=== PATIENT | female | born 1980 | race Caucasian/White ===

== ENCOUNTER 2018-06-24 19:57 | Emergency (ER) | payer OTHER, SELFPAY ==
[2018-06-24 20:00] VITALS: BP 149/94; PULSE 91; RESP 18; TEMP 36.8; O2SAT 99; BMI 23.3
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
--- NOTE | 2018-06-24 21:55 | RAD_ITS ---
STUDY: X-RAY - LEFT RADIUS AND ULNA REASON FOR EXAM: Female, 37 years old. Injury. Mid arm pain. TECHNIQUE: 2 view(s) of the forearm. COMPARISON: None. FINDINGS: There is no demonstrated soft tissue swelling. Normal visualized radius. Normal visualized ulna. There is no acute fracture, dislocation or destructive osseous pathology. The wrist and elbow appear grossly unremarkable. RAD/Forearm 2 Views IMPRESSION: Normal x-ray examination of the radius and ulna. Electronically Signed: Kameron Martin DO at 22:13 EST Tel [phone], Service support ,
--- NOTE | 2018-06-24 22:51 | ED.DEP ---
ED Disposition - Plan for ED Patient: Disposition: Home or Assisted Living Chief Complaint: Head Injury Instructions: ED Concussion, ED Contusion Upper Ext Prescriptions: Meclizine HCl [Antivert] 25 mg PO TID PRN PRN #20 tab PRN Reason: vertigo or nausea Referrals: Sergio Subramanian III, MD [Primary Care Provider] - 3-5 Days if not improving [facility] [GROUP OF PHYSICIANS] - 1 Day Additional Instructions: If you have any worsening of your condition or any new concerning symptoms, please return immediately to the emergency department for another evaluation.
[2018-06-24] MEDS: Acetaminophen 500 MG Tablet 1000 MG PO (22:53)
[2018-06-24] MEDS: Meclizine HCl 25 MG Tablet PO (22:56)
[2018-06-24 23:03] VITALS: BP 142/89; PULSE 76; RESP 16; O2SAT 99
--- OUTSIDE RECORDS SUMMARY | 2018-08-10 22:43 | XMS RPT_ITS ---
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 Location: right lower cheek Character: Mostly pressure, some throbbing Radiation: Into the right upper teeth, sore right neck glands Aggravating: Chewing food, pressure leaning forward Relieving: Pressing on the cheek Pain relievers: Ibuprofen (800mg reduced pain this morning at 3AM), advil sinus was helping a few days ago for presumed sinus pain Associated: Hot flashes/cold chills, AM nasal discharge, tickle cough yesterday, environmental allergies. Pertinent negatives: Denies sore throat, Has 9 month old at home. Vasectomy for control. MEDICATIONS: No prescriptions on file. ALLERGIES: ALLERGIES Allergen Reactions - Sulfa (Sulfonamide * CHILDHOOD REACTION VITALS: BP 120/80 Pulse 94 Temp 36.6 ?C (97.9 ?F) (Left Tympanic) Resp 14 Wt 69.4 kg (153 lb) PHYSICAL EXAM: GEN: pleasant, more comfortable pressing on her right cheek (in line with the right cornea and nostrils) but otherwise no acute distress, alert HEENT: PERRL, EOMI, MMM. No obviously fractured teeth. The distal roots are exposed on the teeth and they are mobile with palpation but not tender. NECK: supple, tender right anterior chain, lymphadenopathy, no thyromegaly HEART: regular rate, regular rhythm, no murmurs LUNGS: clear to auscultation, no wheezes or crackles, no increased WOB ABD: soft, non-distended, no masses palpated, non-tender EXT: no clubbing, no cyanosis, no edema ASSESSMENT/PLAN: 1. Pain of cheek - ICD9: 784.0, ICD10: R51 Sinusitis vs dental abscess. Start - AMOXICILLIN 875 MG TABLET Follow up with dentist or PCP if not improving. Ibuprofen and acetaminophen for pain. Janna Mendez MD Referring Provider: SELF [200] Allergies As of Date: 12/10/2017 Noted Allergy Reaction SULFA (SULFONAMIDE ANTIBIOTICS) 05/27/2008 Comments: CHILDHOOD REACTION Date Reviewed: 12/10/2017 Reviewed by: Lilly Chavis Ma - Fully Assessed Reason for Visit: Dental Problem [31] Sinus Infection,frequent/recurring [1167] Cmt: possible Primary Visit Diagnosis:Pain of cheek [R51] Order(s):amoxicillin (AMOXIL) 875 mg tabletTake 1 tablet by mouth twice daily for 10 days.Disp: 14 tabletRfl: 0 Prescriptions as of 12/10/2017 Sig: AMOXICILLIN 875 MG TABLET Take 1 tablet by mouth twice * Problem List As Of Date 12/10/2017 Noted Resolved SUPERVIS OTHER NORMAL PREG [Z34.80] INVALID FOR* SUPRF HIGH RISK NEC [O09.899] INVALID FOR* Prescriptions ordered this encounter Disp Refills Start End AMOXICILLIN 875 MG TABLET 14 t* 0 12/10/2017 12/20/2017 Route: ORAL Sig: Take 1 tablet by mouth twice daily for 10 days. Medications Discontinued During This Encounter calcium carbonate(CORAL CALCIUM 185 * 0 06/10/2008 12/10/2017 Class: Med Update Route: ORAL Sig: use as directed Disc: Reason for discontinue is not on file. norgestimate-ethinyl estradiol(SPRIN* 21 14 01/26/2009 12/10/2017 Class: Print RX Route: ORAL Sig: Take one(1) tablet daily. Continuously Disc: Reason for discontinue is not on file. Letter Text [facility] [address], [place] [address] 12/10/2017 Christine Gregg CC# [id number] [address] [place] [id number] TO WHOM IT MAY CONCERN: This is to confirm that Christine Gregg had an appointment and was seen at the [facility] in the Department of Urgent Care by Janna Mendez MD on 12/10/2017 for illness. Sincerely , Janna Mendez MD Encounter Status:Closed by JANNA MENDEZ MD on 12/10/17 ALLERGIES ALLERGIES DATE TYPE / CODE NAME / CODE REACTION SEVERITY SOURCE 06/26/2018 Drug Sulfa Unknown Unknown [facility] Repository CT) [id number](RX NORM) 05/27/2008 Drug SULFA [facility] Class/096732 (SULFONAMIDE Main Mobile 003(SNOMED ANTIBIOTICS) Repository CT) ENCOUNTERS ENCOUNTERS ADMIT/DISCHARGE ACCOUNT ADMITTING ENCOUNTER LOCATION SOURCE NUMBER CLASS 07/27/2018/07/27/19 [id number] Ambulatory BMSBuilding:B [facility] 19 MS.NOW [facility] Repository 07/03/2018/07/03/20 [id number] Ambulatory BMSBuilding:B [place] 18 MS.NOW [facility] Repository 06/26/2018/06/26/20 [id number] Ambulatory BMSBuilding:B [place] 18 MS.NOW [facility] Repository 06/24/2018/06/24/20 [id number] [facility] Hospital ing:ED Repository 12/10/2017/12/12/[id number] Repository PAYERS PAYERS ENCOUNTER GUARANTOR PAYER SUBSCRIBER SOURCE 07/27/2018 CHRISTINE Pagan Primary CHRISTINE Pagan [facility] [address] Insurance:OB TUCKERDOB: [address] [id number] Hospital [address]Ilz: (330) ADMINPolicy Number: Repository 466 () [id number] Date: [place], [place] [address]GL: 07/27/2018 Secondary CHRISTINE C [facility] Insurance:MEDICAL TUCKERDOB: [facility] [id number] Hospital Number: Repository [id number] Date:[id number] [address]ZF: 07/27/2018 Tertiary NOT GIVENUNK [place] Insurance:SELF PAY [facility] Number: Effective Repository Date:2018-07-27 07/03/2018 CHRISTINE Pagan Primary CHRISTINE Pagan [facility] [address] Insurance:OB TUCKERDOB: [address] [id number] Hospital [address]Ysg: (330) ADMINPolicy Number: Repository [id number] () [id number] Date: [place], [place] [address]FN: 07/03/2018 Secondary CHRISTINE C [place] Insurance:MEDICAL TUCKERDOB: [facility] [id number] Hospital Number: Repository [id number] Date:[id number] [address]UY: 07/03/2018 Tertiary NOT GIVENUNK [place] Insurance:SELF PAY [facility] Number: Effective Repository Date:2018-07-03 06/26/2018 CHRISTINE C Primary CHRISTINE C [facility] [address] Insurance:OB [address]ERDOB: [address] MED[address] [id number] Hospital [address]Gkz: (330) ADMINPolicy Number: Repository [id number] () [id number] Date: [place] [address]HK: 06/26/2018 Secondary CHRISTINE C [place] Insurance:MEDICAL TUCKERDOB: [facility] [id number] Hospital Number: Repository [id number] Date:[id number] [address] [address]JK: 06/26/2018 Tertiary NOT GIVENUNK [place] Insurance:SELF PAY [facility] Number: Effective Repository Date:2018-06-26 06/24/2018 CHRISTINE C Primary CHRISTINE C Sharda [facility] BOX [facility] [address] [id number] Hospital [address]Ded: (330) ADMINPolicy Number: Repository [id number] () [id number] Date: [place], [place] [address]RH: 06/24/2018 Secondary CHRISTINE C [place] Insurance:MEDICAL TUCKERDOB: [facility] [id number] Hospital Number: Repository [id number] Date:[id number] [address] [address]ZK: 06/24/2018 Tertiary NOT GIVENUNK [place] Insurance:SELF PAY [facility] Number: Effective Repository Date:2018-06-24
== END 2018-06-24 23:05 | disposition home or self-care (01) ==
PROVIDERS: Emergency Provider Emergency Medicine; Family Provider Family Medicine; PCP Family Medicine
DX: S06.0X0A Concussion without loss of consciousness, initial encounter (principal); S50.12XA Contusion of left forearm, initial encounter; R40.2410 Glasgow coma scale score 13-15, unspecified time; Y04.2XXA Assault by strike against or bumped into by another person, initial encounter; W23.0XXA Caught, crushed, jammed, or pinched between moving objects, initial encounter; Y93.9 Activity, unspecified; Y92.9 Unspecified place or not applicable; J32.2 Chronic ethmoidal sinusitis; Z72.0 Tobacco use
CPT/HCPCS: 70450; 73090; 99283

== ENCOUNTER → 2018-11-17 | Outpatient (CLI) | payer BC, SELFPAY ==
[2018-11-17 09:52] VITALS: BMI 21.4
--- NOTE | 2018-11-17 10:01 | RAD_ITS ---
We are attempting to reach an attending provider to discuss findings. An addendum with communication details will be sent when the communication is complete. STUDY: X-RAY - RIGHT ANKLE REASON FOR EXAM: Female, 38 years old. Two-week history of lateral ankle pain. TECHNIQUE: 3 view(s) of the ankle. COMPARISON: None. FINDINGS: Normal visualized distal tibia and fibula. Normal medial and lateral malleoli. Normal tibiotalar articulation and ankle mortise. Normal visualized talus and calcaneus. The visualized subtalar, talonavicular, calcaneocuboid and tarsal articulations are normal. The soft tissue structures are unremarkable. RAD/Ankle min 3 Views IMPRESSION: Normal x-ray examination of the ankle. Pending Final Proof Editing
== END | disposition home or self-care (01) ==
LOC: HPRAD 09:59
PROVIDERS: Family Provider Family Medicine; PCP Family Medicine; Referring Provider Physician Assistant Surgical; Visit Provider Physician Assistant Surgical
DX: S96.911A Strain of unspecified muscle and tendon at ankle and foot level, right foot, initial encounter (principal)
CPT/HCPCS: 73610